=== PATIENT | male | born 1960 | race African-American/Black ===

== ENCOUNTER → 2019-05-20 01:23 | Emergency (ER) ==
--- NOTE | 2019-05-18 14:58 | Diag Imaging Result Doc PS360 ---
CHEST-PORTABLE - 05/18/2019 INDICATION: Chest Pain COMPARISON: 01/03/2019 FINDINGS: The lungs are normally expanded and clear. Heart size and mediastinal contours are normal. No pneumothorax or pleural effusion. IMPRESSION: Negative exam. Electronically signed by Darrin Vinson 05/18/2019 2:56 PM
--- NOTE | 2019-05-18 15:11 | GRADED EXERCISE REPORT ---
DATE: 05/18/2019 REFERRING PHYSICIAN: PROCEDURE: GXT. DESCRIPTION: Patient exercised on Barney protocol for 4 minutes and 45 seconds to a peak heart rate of 131, 81% predicted maximal heart rate achieved. The patient developed chest discomfort on the treadmill. Baseline electrocardiogram revealed normal sinus rhythm. Normal EKG. Patient had ST elevations in lead V1 and V2 in stage II of the Barney protocol associated with ST depression in the lateral leads. Exercise was stopped, and subsequently the electrocardiogram revealed that the ST elevation in the septal leads had normalized. There was persistent ST depression in the lateral leads well into 2 minutes into recovery. There was a [address] depression in the lateral leads. In the inferior leads, there was 3 [address] depression. CONCLUSIONS: 1. The patient exercised for 4 minutes and 45 seconds to a peak heart rate 131, 81% predicted maximal heart rate achieved. 2. Patient had ST-elevation in the septal leads with Q-waves noted. Subsequently, normalization on resting of the ST elevation. He had a [address] depression in the lateral leads in stage II in addition to [address]-depression in the inferior leads. The patient has exercised induced EKG changes suggestive of myocardial infarction and severe ischemia. The patient will be taken to the emergency room and transferred to [facility] for subsequent testing and invasive coronary angiography. cc: Shmuel Terrell MD
--- NOTE | 2019-05-18 15:20 | EKG Report ---
Test Performed on : 05/18/2019 3:10:24 PM Test Reason : chest pain Blood Pressure : / mmHG Vent. Rate : 049 BPM Atrial Rate : 049 BPM P-R Int : 158 ms QRS Dur : 078 ms QT Int : 400 ms P-R-T Axes : 069 029 060 degrees QTc Int : 361 ms Sinus bradycardia. Otherwise normal ECG When compared with ECG of 07-JUN-2011 21:23, Nonspecific T wave abnormality, improved in Lateral leads Unconfirmed Result
[2019-05-18 15:25] LABS: HEMATOCRIT 44.5 % (42.0-52.0); HEMOGLOBIN 14.9 g/dL (14.0-18.0); MCH 31.7 PG (27-31); MCHC 33.5 g/dL (33-37); MCV 94.7 FL (81-99); MPV 9.9 FL (7.4-10.4); RBC 4.7 XMIL (4.7-6.1); RDW 12.5 % (11.5-14.5); WBC 5.68 X1000 (4.8-10.8)
[2019-05-18 15:30] LABS: INR 1.08; PROTIME 14.2 Seconds (11.0-16.0)
[2019-05-18 16:24] LABS: ESTIMATED GFR > 60; MAGNESIUM 2.1 mg/dL (1.5-2.7); POTASSIUM 4.3 mmol/L (3.5-5.1)
[2019-05-18 16:28] LABS: CK PROFILE 268 U/L (24-204)
[2019-05-18 16:46] LABS: AGAP 15; BUN 8 mg/dL (8-22); CALCIUM 10.7 mg/dL (8.8-10.2); CHLORIDE 101 mmol/L (98-107); COSMO 277; CREATININE 0.9 mg/dL (0.7-1.2); GLUCOSE 77 mg/dL (70-104); SODIUM 140 mmol/L (136-145); TCO2 24 mmol/L (25-35)
[2019-05-18 16:59] LABS: CK INDEX 1.2 (0.0-2.5); CK-MB 3.17 ng/mL (0.0-5.0)
[2019-05-18 18:33] VITALS: BP 143/85
[~2019-05-20 01:23] MED LIST: ASPIRIN PO SCH; CRESTOR PO SCH; DIOVAN PO SCH; EFFIENT PO SCH; HEPARIN 25,000 UNITS/D5W 25,000 UNIT/250 ML IV.SOLN IV SCH; HEPARIN IV ONE; HEPARIN IV PRN; NITROGLYCERIN TOP SCH; NORVASC PO SCH; PRILOSEC PO SCH; RANEXA PO SCH; TOPROL XL PO SCH; TYLENOL PO PRN; ZOFRAN IV PRN
--- NOTE | 2019-05-22 15:55 | Diag Imaging Result Document ---
PROCEDURE NAME: MYOCARDIAL PERFU SCAN, REST - 05/18/2019 NUCLEAR SCAN: Patient was set up for Cardiolite stress test. Had a resting pictures done which revealed inferior wall defect, and left ventricular cavity size was normal. However the stress images were not performed as patient after the GXT was sent to [facility] for cardiac catheterization. CONCLUSIONS: 1. Low-grade defect noted in the inferior wall. 2. The patient did not undergo stress imaging as he was sent for cardiac catheterization. cc: Shmuel Terrell MD
== END | disposition short-term general hospital (02) ==
LOC: EDIPHOLD 05-18 11:53 → NM 05-18 11:53 → EDSTATUS 05-18 12:00 → ED 05-18 14:21 → EDIPHOLD 05-18 14:42 → ED 05-18 18:32 → NM 05-18 18:32 → UNDODEPCLI 05-19 14:39 → NM 08:35